=== PATIENT | male | born 1990 | race American Indian/Alaskan Native ===

== ENCOUNTER 2018-07-07 17:13 | Emergency (ER) | payer OTHER ==
[2018-07-07 17:32] VITALS: BP 141/75
[2018-07-07] MEDS ORDERED: TYLENOL PO ONE (17:32)
[2018-07-07] MEDS ORDERED: TYLENOL ONE (17:34)
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
[2018-07-07] MEDS ORDERED: NORCO 7.5/325 PO ONE (19:53)
[2018-07-07] MEDS ORDERED: FLEXERIL PO ONE (19:53)
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
== END 2018-07-07 22:02 | disposition home or self-care (01) ==
LOC: ED 17:13
DX: S16.1XXA Strain of muscle, fascia and tendon at neck level, initial encounter (principal); S80.11XA Contusion of right lower leg, initial encounter; M79.605 Pain in left leg; R68.84 Jaw pain; F17.200 Nicotine dependence, unspecified, uncomplicated; Z88.0 Allergy status to penicillin; Z79.899 Other long term (current) drug therapy; V49.09XA Driver injured in collision with other motor vehicles in nontraffic accident, initial encounter; Y93.89 Activity, other specified; Y99.8 Other external cause status; Y92.481 Parking lot as the place of occurrence of the external cause
CPT/HCPCS: 99283